=== PATIENT | female | born 1990 | race Hispanic/Latino ===

== ENCOUNTER 2021-08-19 13:35 | Emergency (ER) | payer MEDICAID ==
[~2021-08-19] VITALS: Ht 157.5 cm; Wt 84.4 kg
[2021-08-19 13:44] VITALS: BP 110/69
== END 2021-08-19 14:04 | disposition left against medical advice (07) ==
LOC: EDH 13:35
DX: F12.90 Cannabis use, unspecified, uncomplicated (principal); R00.2 Palpitations; R07.89 Other chest pain; Z53.21 Procedure and treatment not carried out due to patient leaving prior to being seen by health care provider
CPT/HCPCS: 93005

== ENCOUNTER 2025-05-11 06:34 | Emergency (ER) | payer MEDICAID, OTHER ==
[~2025-05-11] VITALS: Ht 157.5 cm; Wt 84.8 kg
--- NOTE | 2025-05-11 06:59 | ERN ---
ED Note History of Present Illness Stated Complaint: BACK PAIN, NECK PAIN Chief Complaint: Multiple Complaints Time Seen by MD: 06:41 Dictation: This is a 34-year-old female who presented to the emergency room complaining of back pain and neck pain which has been going on since October of 2024. Apparently patient has not open [employer] case and reported that she fell off a ladder in October and sustained injury and since then had neck and back pain. 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 He has also been in active therapy since November 2024. Her last Naprosyn dose is 05/10/2025 at 11:00 p.m. and gabapentin on 05/10/2025. She stated that she is noncompliant some times. No bladder or bowel incontinence no falls no ambulatory assistance. Temperature 98 pulse 58 respirations 20 blood pressure 128/82 with a pulse oximetry of 100% on room air Allergies: Coded Allergies: No Known Drug Allergies (Unverified Allergy, Unknown, 08/19/21) Past Medical History Past Medical History: Asthma Surgical History: Other, Surgical History Other: RT KNEE Family History: Negative Social History: Negative LMP: Mar 10, 2025 RN Note Reviewed/Agreed w/PFSH: Yes Review of System Dictation Constitutional: Negative for fever,chills, and weight loss Eyes: Negative for injury, pain,redness, and discharge ENT: Negative for injury,pain or swelling Cardiovascular: Negative for chest pain, palpitations, and edema Respiratory: Negative for shortness of breath, cough, and wheezing, Abdomen/GI: Negative for abdominal pain, nausea, vomiting, diarrhea, and constipation Back: Negative for injury and positive for pain and also positive for neck pain : Negative for injury, bleeding and discharge MS/Extremity: Negative for injury and deformity Skin: Negative for rash, and discoloration Neuro: Negative for headache, weakness, numbness, tingling, and seizure Psych: Negative for suicide ideation, homicidal ideation, and hallucinations Initial Vital Sign VS Vital Signs Date Time Temp Pulse Resp B/P (MAP) Pulse Ox O2 Delivery O2 Flow Rate FiO2 05/11/25 06:35 98.1 58 20 128/82 100 Room Air 05/11/25 07:37 0 21 Physical Exam Dictation General: awake, alert, NAD obese female Head/Face: Normocephalic, atraumatic Eyes: PERRL, EOMI, vision at baseline ENT: oral cavity clear, TMs clear, no signs of infection Neck: Trachea midline, supple, no nuchal rigidity Cardiovascular: RRR, normal S1/S2, No MRGs, no JVD Respiratory: CTAB, no respiratory distress, No rales or wheezes Abdomen: Soft, non-tender, non-distended, normal bowel sounds, no guarding or rebound. Back-no spine tenderness or bony abnormality Skin: Warm, dry, normal turgor, no rash MS/Extremity: Pulses equal, no cyanosis, neurovascular intact, FROM Neuro: COAx4, GCS 15, strength 5/5, CN 2-12 intact, normal cerebellar exam, normal gait, Psych: Normal behavior, mood, and affect normal Extremities-trace edema without any palpable cords, Homans sign is negative Results (Laboratory/Radiology) Laboratory/Radiology Laboratory Tests Test 05/11/25 08:02 Urine Color COLORLESS (YELLOW) Urine Appearance CLEAR (CLEAR) Urine pH 7.0 (5.0-8.0) Urine Specific [place] 1.012 (1.001-1.031) Urine Protein NEGATIVE mg/dL (NEGATIVE) Urine Glucose (UA) NEGATIVE mg/dL (NEGATIVE) Urine Ketones NEGATIVE mg/dL (NEGATIVE) Urine Occult Blood NEGATIVE (NEGATIVE) Urine Nitrate NEGATIVE (NEGATIVE) Urine Bilirubin NEGATIVE mg/dL (NEGATIVE) Urine Urobilinogen 0.2 mg/dL (0.2-1.0) Urine Leukocyte Esterase 250 Marianne/uL (NEGATIVE) H Urine RBC 2-5 /HPF (0-1) H Urine WBC 2-5 /HPF (0-1) H Urine Squamous Epithelial Cells RARE /HPF (0-2) Urine Bacteria RARE /HPF (None Seen) Urine HCG, Qualitative NEGATIVE (NEGATIVE) Urine Opiates Screen NEGATIVE (NEGATIVE) Urine Barbiturates Screen NEGATIVE (NEGATIVE) Urine Phencyclidine Screen NEGATIVE (NEGATIVE) Urine Amphetamines Screen NEGATIVE (NEGATIVE) Urine Benzodiazepines Screen NEGATIVE (NEGATIVE) Urine Cocaine Screen NEGATIVE (NEGATIVE) Urine Marijuana (THC) Screen NEGATIVE (NEGATIVE) ED Course ED Course Orders Procedure Category Date Status Time Urinalysis Profile LAB 05/11/25 Complete 06:50 ,Urine Test LAB 05/11/25 Complete 06:50 Orphenadrine Citrate PHA 05/11/25 Complete (Norflex) 07:00 Drug Screen Urine LAB 05/11/25 Complete 06:58 Methylprednisolone PHA 05/11/25 Complete Succ 40mg (Solu-Medro 08:00 Culture Urine MARIAA 05/11/25 Logged 08:36 Ketorolac PHA 05/11/25 In Process Tromethamine 30mg/Ml 09:00 Current Medications Medications (Trade) Dose Ordered Sig/Rayna Route PRN Reason Start Time Stop Time Status Last Admin Dose Admin Ketorolac Tromethamine (toRADol) 30 mg ONCE ONCE IM 05/11/25 09:00 05/11/25 09:01 Methylprednisolone Sodium Succinate (Solu-medROL 40MG) 60 mg ONCE ONCE IVP 05/11/25 08:00 05/11/25 08:01 DC 05/11/25 08:25 Orphenadrine Citrate (Norflex) 60 mg ONCE ONCE IM 05/11/25 07:00 05/11/25 07:01 DC 05/11/25 07:39 Vital Signs Date Time Temp Pulse Resp B/P (MAP) Pulse Ox O2 Delivery O2 Flow Rate FiO2 05/11/25 07:37 98.4 64 19 119/63 100 Room Air* 0 21 05/11/25 06:35 98.1 58 20 128/82 100 Room Air Medical Decision Making MDM MDM: Differential diagnosis:Lumbago, degenerative disc disease, paraspinal muscle spasm, central canal stenosis, dish, optimal stenosis, herniated intervertebral discs, spondylolisthesis Rationale: Tests considered and ordered secondary to shared decision making include: Previous outside records reviewed: Old ER visits. Risk of complication and/or morbidity or mortality of patient management: None Medications-Per medication reconciliation Need for hospitalization: Patient does not meet criteria for hospitalization. Need for emergency major/minor surgery: No There are no social concerns with this patient. Patient is a 34-year-old female coming in complaining of back pain. Per patient she has had this back pain for some time she is getting pain management treatment for the back pain. She states that it isn't working so she came in for further evaluation. Patient received some medications states he feels much better we will be discharged in stable condition. DX & DISP Disposition: Discharge Departure Impression: Primary Impression: Acute on chronic back pain Condition: Stable Additional Instructions: FOLLOW-UP WITH PRIMARY CARE PROVIDER IN 1 TO 2 DAYS. TAKE MEDICATIONS DIRECTED HERE IN THE EMERGENCY ROOM. OKAY TO CONTINUE HOME MEDICATIONS UNLESS OTHERWISE DISCUSSED DURING YOUR VISIT IN THE EMERGENCY ROOM TODAY. RETURN TO YOUR NEAREST EMERGENCY ROOM IF SYMPTOMS WORSEN OR IF THERE IS NO IMPROVEMENT. CALL 911 IF YOU NEED IMMEDIATE ASSISTANCE. TAKE TYLENOL IRNA-WPW-YSPRWOW NEEDED AND IF NO CONTRAINDICATIONS ARE PRESENT. INCREASE ORAL HYDRATION. A W OUND CULTURE OR URINE CULTURE WAS ORDERED HERE IN THE EMERGENCY ROOM DEPARTMENT PLEASE FOLLOW-UP WITH PRIMARY CARE PROVIDER AND ADVISE THEM TO GET REPORTS FROM OUR FACILITY. IF YOU HAD ANY MEGA WRAP/SPLINTS THAT WERE APPLIED HERE, PLEASE DO NOT REMOVE THEM UNTIL YOU SEE YOUR PRIMARY CARE OR SPECIALTY. Referrals: Referrals: SELF,REFERRAL (PCP) KILO CIFUENTES MD Time of Disposition: 08:51 DALLIN DOMINGUEZ MD May 11, 2025 06:58 ARTEMIO BALLESTEROS MD May 11, 2025 08:52
[2025-05-11 07:37] VITALS: BP 119/63; PULSE 64; RESP 19; TEMP 98.5; O2SAT 100
[2025-05-11] MEDS: ORPHENADRINE 60MG/2ML IM ONE (07:39)
[2025-05-11] MEDS: Solu-medROL 40MG VIAL IVP ONE (08:25)
[2025-05-11 08:36] LABS: ADD UA MICROSCOPIC YES; APPEARANCE,URINE CLEAR (CLEAR); GLUCOSE, URINE (UA) NEGATIVE (NEGATIVE); LEUKOCYTE ESTERASE ,URINE 250 Leu/uL (NEGATIVE); NITRATE,URINE NEGATIVE (NEGATIVE); OCCULT BLOOD,URINE NEGATIVE (NEGATIVE)
[2025-05-11 08:38] LABS: SQUAMOUS EPITHELIAL CELL,UR RARE /HPF (0-2)
[2025-05-11 08:42] LABS: HCG,QUALITATIVE URINE NEGATIVE (NEGATIVE)
[2025-05-11 08:43] LABS: AMPHET/METH SCREEN,URINE NEGATIVE (NEGATIVE); BARBITURATE SCREEN, URINE NEGATIVE (NEGATIVE); CANNABINOID SCREEN,URINE NEGATIVE (NEGATIVE); COCAINE SCREEN,URINE NEGATIVE (NEGATIVE)
== END 2025-05-11 10:00 | disposition home or self-care (01) ==
LOC: EDH 06:34
DX: G89.29 Other chronic pain (principal); M54.9 Dorsalgia, unspecified; J45.909 Unspecified asthma, uncomplicated; Z79.899 Other long term (current) drug therapy
CPT/HCPCS: 99284; 96374; 80305; 87086; 81001; 81025; 96372; J1885; J2919; J2360